=== PATIENT | female | born 1995 | race Hispanic/Latino ===

== ENCOUNTER 2022-08-10 20:11 | Emergency (ER) | payer SELFPAY ==
[~2022-08-10] VITALS: Ht 160 cm; Wt 83.0 kg
[2022-08-10] MEDS ORDERED: ONDANSETRON HCL INJ 2MG/ML 2ML 2 MG/ML VIAL IV STA (20:40)
[2022-08-10] MEDS ORDERED: FAMOTIDINE 20 MG/2 ML VIAL IV STA (20:40)
[2022-08-10] MEDS ORDERED: LACTATED RINGER'S 1,000 ML IV STA (20:40)
[2022-08-10] MEDS ORDERED: ONDANSETRON HCL INJ 2MG/ML 2ML 2 MG/ML VIAL ONE (20:58)
[2022-08-10] MEDS ORDERED: LACTATED RINGER'S 1,000 ML ONE (20:59)
[2022-08-10] MEDS ORDERED: FAMOTIDINE 20 MG/2 ML VIAL IV ONE (20:59)
[2022-08-10] MEDS ORDERED: ONDANSETRON ODT4 MG PO (21:18)
[2022-08-10 21:55] VITALS: BP 109/55
== END 2022-08-10 21:55 | disposition home or self-care (01) ==
LOC: FSED 20:18
DX: R11.2 Nausea with vomiting, unspecified (principal); K52.9 Noninfective gastroenteritis and colitis, unspecified; E86.0 Dehydration
CPT/HCPCS: 74176; 80048; 81003; 81025; 85025; 96374; 96376; 99284; J2405; J7121